=== PATIENT | male | born 1955 | race Caucasian/White ===

== ENCOUNTER → 2018-05-08 | Outpatient (CLI) | payer OTHER ==
[2018-05-08 15:57] LABS: CREATININE 1.6 mg/dL (0.6-1.3)
== END ==
LOC: M.CT 15:00
PROVIDERS: Nurse Practitioner Family
DX: I26.99 Other pulmonary embolism without acute cor pulmonale (principal); R06.00 Dyspnea, unspecified; N28.1 Cyst of kidney, acquired; N20.0 Calculus of kidney